=== PATIENT | female | born 1960 | race Hispanic/Latino ===

== ENCOUNTER 2017-09-15 14:55 | Emergency (ER) | payer OTHER ==
[~2017-09-15 14:55] MED LIST: AEC81 PO; ALEN70TA47 PO; LOSA100T29 PO; SIMV10TA6 PO
[2017-09-15] MEDS ORDERED: KETOROLAC TROMETHAMINE 60 MG/2 ML VIAL ONE (15:22)
[2017-09-15] MEDS ORDERED: DEXAMETHASONE SOD PHOSPHATE 10MG/ML 1ML VIAL ONE (15:22)
== END 2017-09-15 16:07 | disposition home or self-care (01) ==
LOC: EDH 14:55
DX: M54.42 Lumbago with sciatica, left side (principal)
CPT/HCPCS: 96372 ×2; 99284; J1100; J1885

== ENCOUNTER → 2017-09-23 | Outpatient (CLI) | payer OTHER ==
[2017-09-23 09:05] LABS: BASOPHILS % (AUTO) 0.8 % (0.0-5.0); EOSINOPHILS % (AUTO) 1.9 % (0.0-8.0); HEMATOCRIT 38.2 % (36-48); LYMPHOCYTES % (AUTO) 34.7 % (21.0-51.0); MEAN CORPUSCULAR HEMOGLOBIN 31.5 pg (27.0-33.0); MEAN CORPUSCULAR HGB CONC 34.7 g/dL (32.0-36.0); MEAN CORPUSCULAR VOLUME 90.8 fL (79-99); MONOCYTES % (AUTO) 6.7 % (3.0-13.0); NEUTROPHILS % (AUTO) 55.9 % (40.0-77.0); PLATELET COUNT (AUTO) 374 K/uL (130-400); RED CELL DISTRIBUTION WIDTH 13.8 % (11.0-15.5); WHITE BLOOD COUNT (AUTO) 10.7 K/uL (4.8-10.8)
[2017-09-23 09:26] LABS: ALBUMIN 3.3 g/dL (3.5-5.0); BILIRUBIN,TOTAL 0.4 mg/dL (0.2-1.0); CREATININE 0.6 mg/dL (0.5-1.5); POTASSIUM 3.7 mmol/L (3.5-5.1); TOTAL PROTEIN, SERUM 7.5 g/dL (6.0-8.3)
[2017-09-23 11:15] LABS: HEMOGLOBIN A1C 6.3 % (4.0-6.0)
[2017-09-24 08:17] LABS: HEPATITIS Bs ANTIGEN SCREEN P Negative (Negative)
== END | disposition home or self-care (01) ==
LOC: LAB 09-14 07:07
PROVIDERS: ATTEND Internal Medicine
DX: Z02.89 Encounter for other administrative examinations (principal); E88.81 Metabolic syndrome and other insulin resistance; E78.2 Mixed hyperlipidemia; I10 Essential (primary) hypertension; R73.09 Other abnormal glucose; M25.50 Pain in unspecified joint
CPT/HCPCS: 36415; 80053; 80061; 82043; 82570; 83036; 85025; 87340; 87520

== ENCOUNTER → 2017-11-08 | Outpatient (CLI) | payer OTHER ==
[2017-11-08 14:13] LABS: CREATININE 1.2 mg/dL (0.5-1.5)
== END | disposition home or self-care (01) ==
LOC: LAB 13:54
PROVIDERS: ATTEND Internal Medicine
DX: I10 Essential (primary) hypertension (principal)
CPT/HCPCS: 36415; 82565; 84520

== ENCOUNTER → 2017-11-10 | Outpatient (CLI) | payer OTHER ==
[~2017-11-10] MED LIST changes: +GADOBENATE DIMEGLUMINE 10 ML IV ONE
== END | disposition home or self-care (01) ==
LOC: RAH 08:07
PROVIDERS: ATTEND Internal Medicine
DX: M47.26 Other spondylosis with radiculopathy, lumbar region (principal); M51.16 Intervertebral disc disorders with radiculopathy, lumbar region; M79.605 Pain in left leg
CPT/HCPCS: 72158; A9577

== ENCOUNTER → 2018-04-17 | Outpatient (CLI) | payer OTHER ==
[~2018-04-17] MED LIST changes: -GADOBENATE DIMEGLUMINE 10 ML IV ONE; +LOSA100T20 PO; -LOSA100T29 PO
== END | disposition home or self-care (01) ==
LOC: RAH 14:58
PROVIDERS: ATTEND Internal Medicine
DX: Z12.31 Encounter for screening mammogram for malignant neoplasm of breast (principal); Z72.89 Other problems related to lifestyle
CPT/HCPCS: 77067

== ENCOUNTER → 2019-04-16 | Outpatient (CLI) | payer OTHER ==
[~2019-04-16] MED LIST changes: +ALEN70TA10 PO; -ALEN70TA47 PO; -LOSA100T20 PO; +LOSA100T58 PO
== END | disposition home or self-care (01) ==
LOC: RAH 12:51
PROVIDERS: ATTEND Internal Medicine
DX: Z12.31 Encounter for screening mammogram for malignant neoplasm of breast (principal)
CPT/HCPCS: 77067

== ENCOUNTER → 2020-04-09 | Outpatient (CLI) | payer OTHER ==
[~2020-04-09] MED LIST changes: -ALEN70TA10 PO; +ALEN70TA69 PO; -SIMV10TA6 PO; +SIMV10TA97 PO
== END | disposition home or self-care (01) ==
LOC: RAH 09:27
PROVIDERS: ATTEND Internal Medicine
DX: Z12.31 Encounter for screening mammogram for malignant neoplasm of breast (principal)
CPT/HCPCS: 77067

== ENCOUNTER 2023-04-04 06:51 | Observation (INO) | payer BC, OTHER ==
[~2023-04-04] VITALS: Ht 165.1 cm; Wt 95.7 kg
[~2023-04-04 06:51] MED LIST changes: -ALEN70TA69 PO; +ALEN70TA80 PO; -LOSA100T58 PO; +LOSA100T59 PO
[2023-04-04] MEDS ORDERED: NITROGLYCERIN 0.4 MG SL TAB SL ONE (07:16)
[2023-04-04 07:46] LABS: HEMATOCRIT 37.8 % (36-48); MEAN CORPUSCULAR HEMOGLOBIN 30.4 pg (27.0-33.0); MEAN CORPUSCULAR HGB CONC 33.1 g/dL (32.0-36.0); PLATELET COUNT (AUTO) 312 K/uL (130-400); RED BLOOD CELL COUNT(AUTO) 4.11 MIL/uL (4.00-5.50); RED CELL DISTRIBUTION WIDTH 12.9 % (11.0-15.5); WHITE BLOOD COUNT (AUTO) 17.1 K/uL (4.8-10.8)
[2023-04-04 07:48] LABS: CREATININE 0.7 mg/dL (0.5-1.5); POTASSIUM 4.2 mmol/L (3.5-5.1)
[2023-04-04 07:52] LABS: ALBUMIN 3.5 g/dL (3.5-5.0); BILIRUBIN,TOTAL 0.4 mg/dL (0.2-1.0); TOTAL PROTEIN, SERUM 7.7 g/dL (6.0-8.3)
[2023-04-04] MEDS ORDERED: ASPIRIN 325MG TAB PO ONE (08:30)
[2023-04-04 08:46] LABS: BASOPHILS % (MANUAL) 1 % (0-2); LYMPHOCYTES % (MANUAL) 17 % (22-44); MAN.DIFF COMMENT-IMPRESSION MANUAL DIFFERENTIAL; MONOCYTES % (MANUAL) 5 % (2-9); SEGMENTED NEUTROPHILS % 77 % (40-70); TOTAL CELLS COUNTED 100
[2023-04-04 08:47] LABS: PLATELET MORPHOLOGY COMMENT ADEQUATE; WBC MORPHOLOGY SLIDE REVIEWED
[2023-04-04 09:11] LABS: COVID19 (SARS ANTIGEN RAPID) PRESUMPTIVE NEGATIVE (NEGATIVE); INFLUENZA TYPE A Negative For Type A (NEGATIVE); INFLUENZA TYPE B Negative For Type B (NEGATIVE)
[2023-04-04] MEDS ORDERED: IOHEXOL-350 75 ML VIAL IV ONE (09:28)
[2023-04-04] MEDS ORDERED: SIMV-46 PO (10:53)
[2023-04-04] MEDS ORDERED: PROP20TA7 PO ×2 (10:53→10:55)
[2023-04-04] MEDS: NITROGLYCERIN 1GM OINT 1 INCH/1GM TD SCH ×2 (11:06→18:54)
[2023-04-04] MEDS ORDERED: ONDANSETRON 4MG INJ IVP ONE (11:30)
[2023-04-04] MEDS ORDERED: MORPHINE 2 MG SYG IM ONE (11:30)
[2023-04-04] MEDS ORDERED: PROPRANOLOL HCL 20 MG TAB PO PRN (14:00)
[2023-04-04] MEDS ORDERED: ALPRAZOLAM 0.5 MG TABLET PO PRN (14:30)
[2023-04-04] MEDS ORDERED: KCL 20 MEQ ERTAB PO PRN (14:30)
[2023-04-04] MEDS ORDERED: ONDANSETRON 4MG INJ IV PRN (14:30)
[2023-04-04] MEDS ORDERED: POTASSIUM CHLORIDE 20MEQ/100ML 100 ML IV PRN ×2 (14:30)
[2023-04-04] MEDS ORDERED: PANTOPRAZOLE 40 MG TAB DR PO ONE (14:30)
[2023-04-04] MEDS ORDERED: MAGNESIUM OXIDE 400 MG TABLET PO PRN (14:30)
[2023-04-04] MEDS ORDERED: ACETAMINOPHEN 325 MG TAB PO PRN ×2 (14:30)
[2023-04-04] MEDS ORDERED: POTASSIUM CHLORIDE 10% ELIXIR 20 MEQ/15 ML UDCUP PO PRN (14:30)
[2023-04-04] MEDS: 0.9%NACL 1000ML 1,000 ML IV SCH (14:37)
[2023-04-04] MEDS ORDERED: REGADENOSON 0.4 MG/5 ML PF SYG IVP ONE (15:00)
[2023-04-04] MEDS ORDERED: TIZANIDINE HCL 2 MG TABLET PO SCH (20:30)
[2023-04-04] MEDS ORDERED: TIZANIDINE HCL 2 MG TABLET PO PRN (20:30)
[2023-04-04] MEDS ORDERED: ATORVASTATIN 20 MG TABLET PO SCH (21:00)
[2023-04-04] MEDS ORDERED: NON-FORMULARY MEDICATION 1 EACH (Simvastatin 40 MG) PO SCH (21:00)
[2023-04-05] MEDS: 0.9%NACL 1000ML 1,000 ML IV SCH ×2 (00:33→10:30)
[2023-04-05 03:00] VITALS: O2SAT 93
[2023-04-05] MEDS: NITROGLYCERIN 1GM OINT 1 INCH/1GM TD SCH ×3 (03:01→19:00)
[2023-04-05 03:39] VITALS: BP 137/74; PULSE 75; RESP 18
[2023-04-05 04:37] LABS: HEMATOCRIT 31.9 % (36-48); MEAN CORPUSCULAR HEMOGLOBIN 31.2 pg (27.0-33.0); MEAN CORPUSCULAR HGB CONC 33.2 g/dL (32.0-36.0); MEAN CORPUSCULAR VOLUME 93.8 fL (79-99); RED BLOOD CELL COUNT(AUTO) 3.4 MIL/uL (4.00-5.50); WHITE BLOOD COUNT (AUTO) 14.6 K/uL (4.8-10.8)
[2023-04-05 04:49] LABS: INR < 0.93 (0.85-1.15); PROTHROMBIN TIME 10.3 SEC (9.6-11.6)
[2023-04-05] MEDS ORDERED: REGADENOSON 0.4 MG/5 ML PF SYG IVP SCH (08:00)
[2023-04-05 09:00] VITALS: O2SAT 94
[2023-04-05] MEDS ORDERED: ASPIRIN 81 MG EC TAB PO SCH (09:00)
[2023-04-05] MEDS ORDERED: PANTOPRAZOLE 40 MG TAB DR PO SCH (09:00)
[2023-04-05] MEDS ORDERED: ASPIRIN 325MG EC TAB PO SCH (09:00)
[2023-04-05] MEDS ORDERED: LOSARTAN 100 MG TABLET PO SCH (09:00)
[2023-04-05 09:45] VITALS: BP 131/70; PULSE 80; RESP 18
[2023-04-05 12:00] VITALS: BP 98/53; PULSE 65; RESP 18
[2023-04-05 16:00] VITALS: BP 136/58; PULSE 69; RESP 18
[2023-04-05] MEDS ORDERED: AEC81 PO (20:09)
== END 2023-04-05 20:50 | disposition home or self-care (01) ==
LOC: EDH 06:51 → EDHIP 10:50 → 4DH 04-05 02:38
PROVIDERS: ADMIT Internal Medicine; ATTEND Internal Medicine
DX: R07.89 Other chest pain (principal); Z20.822 Contact with and (suspected) exposure to COVID-19; I10 Essential (primary) hypertension; E78.2 Mixed hyperlipidemia; E66.9 Obesity, unspecified; M81.0 Age-related osteoporosis without current pathological fracture; K63.5 Polyp of colon; M43.00 Spondylolysis, site unspecified; G25.0 Essential tremor; K76.0 Fatty (change of) liver, not elsewhere classified; M51.9 Unspecified thoracic, thoracolumbar and lumbosacral intervertebral disc disorder; M54.32 Sciatica, left side; F17.200 Nicotine dependence, unspecified, uncomplicated; Z68.34 Body mass index [BMI] 34.0-34.9, adult; Z79.82 Long term (current) use of aspirin; Z87.19 Personal history of other diseases of the digestive system; Z79.899 Other long term (current) drug therapy; Z98.890 Other specified postprocedural states
CPT/HCPCS: 96374; 96372; 96361 ×2; 99285; 82550 ×2; 83615; 83874 ×2; 84484 ×3; 80053; 83880; 85025; 85378; 87804 ×2; 83605; 87426; 36415 ×2; 71045; 71270; 93005 ×2; 85027; 85610; 85730; 93017; 78452; G0378 ×28; J2270; J7030 ×2; J2405; J2785 ×2; Q9967; A9500 ×2